=== PATIENT | male | born 1950 | race Caucasian/White ===

== ENCOUNTER 2017-08-29 17:05 | Inpatient (IN) | payer SELFPAY ==
[2017-08-29 17:57] LABS: #Eosinphils 0.2 thou/uL (0.0-0.7); #Lymphocytes 1.7 thou/uL (1.20-3.40); #Monocytes 0.6 thou/uL (0.11-0.59); #Neutrophils 7.8 thou/uL (1.40-6.50); %Basophils 0.3 % (0.0-1.0); %Eosinophils 1.8 % (0.0-10.0); %Lymphocytes 16.1 % (21.0-51.0); %Monocytes 5.6 % (0.0-10.0); %Neutrophils 76.2 % (42.0-75.0); Mean Corpuscular HGB CONC 31.3 g/dL (32.0-36.0); Mean Corpuscular Hemoglobin 28.7 pg (27.0-31.0); Mean Corpuscular Volume 91.8 fl (80.0-94.0); Mean Platelet Volume 7.7 fL (7.4-10.4); Platelet Count 426 thou/uL (130-400); RBC Distribution Width 19.3 % (11.5-14.5); Red Blood Cell (RBC) Count 3.83 mill/uL (4.70-6.10); White Blood Cell (WBC) Count 10.2 thou/uL (4.8-10.8)
[2017-08-29 18:27] LABS: ALT (SGPT) 17 U/L (8-55); AST (SGOT) 53 U/L (5-34); Albumin 3.3 g/dL (3.4-4.8); Alkaline Phosphatase 94 U/L (40-150); Anion Gap 18 mmol/L (10-20); BUN (Urea Nitrogen) 16 mg/dL (8.4-25.7); Bilirubin, Total 0.6 mg/dL (0.2-1.2); Calc. Creatinine Clearance 0 mL/min (70-130); Calcium 9.7 mg/dL (7.8-10.44); Carbon Dioxide 17 mmol/L (23-31); Chloride 101 mmol/L (98-107); Estimated GFR-MDRD 90; Globulin 4.8 g/dL (2.4-3.5); Glucose 89 mg/dL (80-115); Potassium 6.1 mmol/L (3.5-5.1); Protein, Total 8.1 g/dL (5.8-8.1); Sodium 130 mmol/L (136-145)
--- NOTE | 2017-08-29 18:50 | RAD ---
PORTABLE CHEST: HISTORY: Weakness. COMPARISON: 08/17/2017 FINDINGS: There is a patchy infiltrate in the right lower lung. Mild vascular congestion and interstitial prom inence could represent mild edema. POS: [facility]
[2017-08-29] MEDS ORDERED: Insulin Regular 300 UNITS/3 ML VIAL ONE (19:00)
[2017-08-29] MEDS ORDERED: Sodium Bicarb 50 MEQ/50 ML Abboject 8.4% SYRINGE ONE (19:00)
[2017-08-29] MEDS ORDERED: Dextrose 50% Abboject 50 ML SYRINGE ONE (19:00)
--- NOTE | 2017-08-29 20:56 | CT ---
CT HEAD WITHOUT CONTRAST: INDICATIONS: Weakness. Hypotension. TECHNIQUE: Multiple axial tomograms obtained through the head without IV enhancement. FINDINGS: Mild cortical volume loss. Ventricles have normal size and position. No intracranial mass or hemorr alexandra. No evidence of infarct. Sinuses and mastoids are well aerated. IMPRESSION: No acute intracranial abnormality. POS: [facility]
[2017-08-29] MEDS ORDERED: Ondansetron ODT 4 MG TAB SL PRN (22:16)
[2017-08-29] MEDS ORDERED: Acetaminophen 325 MG TAB PO PRN ×2 (22:16→23:37)
[2017-08-29] MEDS ORDERED: Ondansetron HCl/PF 4 MG/2 ML Vial IVP PRN (22:16)
[2017-08-29] MEDS ORDERED: HumaLOG 300 UNITS/3 ML VIAL SC PRN ×2 (23:37)
[2017-08-29] MEDS ORDERED: Dextrose 50% Abboject 50 ML SYRINGE SLOW IVP PRN (23:37)
[2017-08-29] MEDS ORDERED: Dextrose 5% in Water 1,000 ML IV PRN (23:37)
[2017-08-29] MEDS ORDERED: Guaifenesin DM 100-10/5 ML UDCUP PO PRN (23:37)
[2017-08-30 00:33] LABS: Potassium 3.6 mmol/L (3.5-5.1)
[2017-08-30 06:16] LABS: Anion Gap 16 mmol/L (10-20); BUN (Urea Nitrogen) 13 mg/dL (8.4-25.7); Calc. Creatinine Clearance 116 mL/min (70-130); Calcium 9.8 mg/dL (7.8-10.44); Carbon Dioxide 21 mmol/L (23-31); Chloride 105 mmol/L (98-107); Estimated GFR-MDRD Greater than 90; Potassium 3.7 mmol/L (3.5-5.1); Sodium 138 mmol/L (136-145)
[2017-08-30 06:22] LABS: Glucose 34 mg/dL (80-115)
--- NOTE | 2017-08-30 06:34 | HP ---
REASON FOR ADMISSION: Persistent hypotension, hyperkalemia. HISTORY OF PRESENTING ILLNESS: Patient had gone for a routine follow up to see Dr. Land at [facility] in [place]. His physical appearance was very pale and his vital signs showed low blood pressures of 83/62 and a point of care hemoglobin was 9.2 grams. The physician there did not feel comfortable and advised him to go to the emergency room. at bedside also mentions that he has had off and on confusion after he was discharged on the 4th of this month. He has held his torsemide this morning, as his blood pressures was low. The also mentions that he has not been ambulating for last 2 weeks. He has been sleeping in his recliner and is assisting with moving into his wheelchair. The patient has known history of CHF with likely prior EF of 15% per . They follow up with Dr. Mckenna who is a facilities operations technician in [place]. In fact, he has a followup appointment to see him today. He has no complaints of chest pain, palpitation, PND, or orthopnea. No complaints of urinary frequency or urgency. No cough or expectoration. He has had bowel movements regularly and has not had any black stools or murali bleeding. PAST MEDICAL AND SURGICAL HISTORY: History of CHF, diabetes mellitus type 2, coronary artery disease with prior stent placed in 2000, also had [place] in 09/[address] Tom for CABG evaluation, but he did not go through the procedure and was for medical management, dyslipidemia, COPD, history of prior peptic ulcer disease, recent GI bleed with gastric ulcers. CURRENT MEDICATIONS: Patient is on gabapentin 300 mg p.o. 3 times daily; topiramate 50 mg 3 times daily; glyburide 5 mg twice daily; Janumet mg twice daily; meclizine 25 mg twice daily; Plavix 75 mg daily; atorvastatin 40 mg daily; CoQ10 of 200 mg daily; aspirin 81 mg daily; potassium chloride 10 mEq p.o. daily; torsemide 10 mg on Tuesday, Tuesday, , Saturdays, and 20 mg on Tuesday, Tuesday, and Fridays; digoxin 0.125 mg p.o. on Tuesday, Wednesdays, and Fridays; allopurinol 100 mg daily; albuterol inhaler q.6 hourly p.r.n.; Protonix 40 mg twice daily. ALLERGIES: No known drug allergies. PERSONAL HISTORY: Quit smoking 1 year back, prior to which has smoked one pack a day for nearly 50 years, does not abuse alcohol or drugs. Lives with his . Prior to 2 weeks, patient was ambulating by himself and was doing all his activities of daily living. He was also making breakfast by himself. Now, he is essentially wheelchair bound. All this information is per . FAMILY HISTORY: Mother at the age of 52 years from breast cancer and its complications. Father lived up to 79 years. He has had history of CHF. REVIEW OF SYSTEMS: The following complete review of systems was negative, unless otherwise mentioned in the HPI or below: Constitutional: Weight loss or gain, ability to conduct usual activities. Skin: Rash, itching. Eyes: Double vision, pain. ENT/Mouth: Nose bleeding, neck stiffness, pain, tenderness. Cardiovascular: Palpitations, dyspnea on exertion, orthopnea. Respiratory: Shortness of breath, wheezing, cough, hemoptysis, fever, or night sweats. Gastrointestinal: Poor appetite, abdominal pain, heartburn, nausea, vomiting, constipation, or diarrhea. Genitourinary: Urgency, frequency, dysuria, nocturia. Musculoskeletal: Pain, swelling. Neurologic/Psychiatric: Anxiety, depression. Allergy/Immunologic: Skin rash, bleeding tendency. CODE STATUS: FULL. Power of employee benefits attorney is his . PHYSICAL EXAMINATION: GENERAL: Patient is a 66-year-old male who is currently not in any acute distress. VITAL SIGNS: Blood pressure 96/70, pulse 100 per minute, respiratory rate 18 per minute, temperature 98 degrees Fahrenheit, saturating 98% on room air. NECK: Supple, no elevated JVD. HEENT: Extraocular muscles intact. Pupils reacting to light. Oral cavity, mucous membranes are moist. No exudates or congestion. The patient has lost all his rugae on his tongue, which appears bald. CARDIOVASCULAR SYSTEM: S1, S2 heard. Regular rhythm. RESPIRATORY SYSTEM: Air entry 1+ bilaterally. No rales or rhonchi. ABDOMEN: Soft, bowel sounds heard. No tenderness, rigidity, or guarding. EXTREMITIES: Mild peripheral edema, no calf tenderness. VASCULAR SYSTEM: Peripheral pulses 1+ bilateral. No ischemic ulcerations, or gangrene. CENTRAL NERVOUS SYSTEM: No gross focal deficits seen. Patient is alert, awake , and oriented well. PSYCHIATRIC SYSTEM: Patient's mood is euthymic. No hallucinations or delusions. LABORATORY DATA AND X-RAY FINDINGS: White count of 10, H&H 11 and 35, platelet count 426 with 76% neutrophils, MCV is 91. Initial potassium was 6.1 repeat is 3.6, serum bicarbonate 17, BUN 16, creatinine 0.8, glucose 86. AST 53, ALT 17, alkaline phosphatase 94. Ammonia levels of 31. Albumin is 3.3. Stool occult blood x1 done in the ER is negative. Chest x-ray shows questionable patchy infiltrate in the right lower lung. CT brain without contrast done showed no acute intracranial abnormalities. CLINICAL IMPRESSION AND PLAN: Patient is being admitted to [facility] for hypotension and generalized physical decline from last two weeks. We will obtain echo with 2D Doppler for evaluation of his ejection fraction. He has known history of congestive heart failure and prior EF was 15% per . We will continue him on aspirin, Plavix, Lipitor, digoxin, topiramate, CoQ10, and Protonix as before. We will also continue his glyburide, hold his metformin for now. We will also empirically place him on Levaquin for right lung infiltrate, which appears more like mild congestion. We will obtain BNP levels as well. Patient has systolic blood pressures usually in the 90s-100s. It has dropped down to 80s at present. His H&H has not changed much from his recent discharge. PT, OT evaluations will be requested as well. Patient will likely need a skilled unit, but is uninsured. We will closely monitor him in [facility] for tonight, and patient can be transferred out to telemetry once his blood pressure come up to around 90s. Please note I have seen and examined patient on 08/29/2017. HAZEL
[2017-08-30 06:45] LABS: Eosinophils 2 % (0-10); Hemoglobin 10.6 g/dL (14.0-18.0); Lymphocytes 21 % (21-51); MDiff Complete? YES; Mean Corpuscular HGB CONC 32.8 g/dL (32.0-36.0); Mean Corpuscular Hemoglobin 29.5 pg (27.0-31.0); Mean Corpuscular Volume 89.8 fl (80.0-94.0); Monocytes 8 % (0-10); Neutrophil 69 % (42-75); PLT Morphology Comment Appears Increased; Platelet Count 424 thou/uL (130-400); Polychromasia SLIGHT = 2-3 cells (100X) (0-2/hpf); RBC Distribution Width 18.8 % (11.5-14.5); Red Blood Cell (RBC) Count 3.59 mill/uL (4.70-6.10)
[2017-08-30] MEDS ORDERED: glyBURIDE 5 MG TAB PO SCH (08:00)
[2017-08-30] MEDS ORDERED: Famotidine 20 MG TAB PO SCH (09:00)
[2017-08-30] MEDS: Allopurinol 100 MG TAB PO SCH (09:05)
[2017-08-30] MEDS: Clopidogrel Bisulfate 75 MG TAB PO SCH (09:06)
[2017-08-30] MEDS: Docusate 100 MG CAP PO SCH ×2 (09:06→20:46)
[2017-08-30] MEDS: Gabapentin 300 MG CAP PO SCH ×3 (09:06→20:46)
[2017-08-30] MEDS: Topiramate 25 MG TAB PO SCH ×3 (09:08→20:46)
[2017-08-30] MEDS: Enoxaparin Sodium 40 MG/0.4 ML SYRINGE SC SCH (09:08)
--- NOTE | 2017-08-30 16:19 | PDOC.PN ---
- Subjective Encounter Start Date: 08/30/17 Encounter Start Time: 16:00 Subjective: f/u for general weakness, physical decline and advanced CHF. Workup -: essentially negative and pt states he feels fine. Some SOB when lying -: flat. - Objective Resuscitation Status: Resuscitation Status FULL:Full Resuscitation MAR Reviewed: Yes Vital Signs & Weight: Vital Signs (12 hours) Temp Pulse Pulse Pulse Pulse Resp BP 08/30/17 15:42 96.8 F L 94 18 08/30/17 13:52 98 98 98 95/67 08/30/17 11:22 97.9 F 95 12 08/30/17 09:00 95 95 105 H 103/71 08/30/17 08:00 97.8 F 103 H 23 H 08/30/17 07:37 97.8 F 103 H 23 H BP BP BP Pulse Ox Pulse Ox Pulse Ox Pulse Ox 08/30/17 15:42 88/62 L 99 08/30/17 13:52 99/68 86/60 L 91 L 99 100 08/30/17 11:22 85/61 L 99 08/30/17 09:00 103/66 89/59 L 98 98 08/30/17 08:00 97 08/30/17 07:37 83/56 L 94 L Weight Admit Weight 181 lb 9.6 oz Weight 181 lb 9.6 oz I&O: 08/29/17 08/30/17 08/31/17 06:59 06:59 06:59 Intake Total 440 Balance 440 Result Diagrams: 08/30/17 04:33 08/30/17 04:33 Additional Labs: Accuchecks 08/30/17 08/30/17 08/30/17 10:31 07:12 06:15 POC Glucose 158 H 88 44 L* Radiology Reviewed by me: Yes (CT brain - negative) EKG Reviewed by me: Yes (Tele - SR in 90's) Phys Exam - Physical Examination awake, pale, responsive, ill-appearing HEENT: PERRLA, sclera anicteric, oral pharynx no lesions Neck: no nodes, no JVD, supple, full ROM bibasilar coarse sounds, occasional crackles Respiratory: no wheezing S1, S2 Cardiovascular: RRR, no significant murmur, no rub, gallop Gastrointestinal: soft, non-tender, no distention, positive bowel sounds Musculoskeletal: no edema, pulses present Neurological: non-focal, normal sensation, moves all 4 limbs Psychiatric: normal affect, A&O x 3 Skin: no rash, normal turgor, cap refill <2 seconds Dx/Plan (1) Hypotension Status: Chronic Comment: Suspected due to systolic CHF, 2D echo pending for EF confirmation, avoid anti-hypertensive medications (2) Physical deconditioning Code(s): R53.81 - OTHER MALAISE Status: Chronic Comment: PT evaluation for functional assessment, ? SNF vs Rehab (3) Systolic CHF, chronic Code(s): I50.22 - CHRONIC SYSTOLIC (CONGESTIVE) HEART FAILURE Status: Chronic Comment: 2D Echo pending for EF determination, appears compensated currently , ? end-stage progression (4) Hypoglycemia Code(s): E16.2 - HYPOGLYCEMIA, UNSPECIFIED Status: Acute Comment: Improved, likely iatrogenic, decrease Glyburide 5mg daily, hold Metformin (5) Hyponatremia Code(s): E87.1 - HYPO-OSMOLALITY AND HYPONATREMIA Status: Acute Comment: Resolved, likely due to poor po intake, continue to encourage Boost, dietary monitoring - Plan plan discussed w/ family, PT/OT, social worker assistant, out of bed/ambulate, DVT proph w/SCDs Stable overall -: Await 2D echo for EF determination -: PT for mobilization and functional assessment -: CM for SNF/Rehab options -: AM lab: CMP, CBC, Digoxin level, CK level * .
[2017-08-30] MEDS: PROVENTIL INHALER 6.7 G (200 INHALATIONS) INH SCH (19:15)
[2017-08-30] MEDS: Ubidecarenone 50 MG CAP PO SCH (20:46)
[2017-08-30] MEDS: Atorvastatin Calcium 40 MG TAB PO SCH (20:46)
--- NOTE | 2017-08-31 01:22 | CON ---
DATE OF CONSULTATION: 08/31/2017 This is Carmencita Soler NP. I am Dr. Casas' nurse practitioner, who is a superintendent circus. CARDIOLOGY CONSULT ROOM NUMBER: [id number]. PRIMARY CARE PHYSICIAN: Dr. Land at [facility] in [place]. PRIMARY BUTTON CUTTING MACHINE OPERATOR: Dr. Mckenna in [place], [place]. CARDIOLOGY: In [place] is going to be Dr. María Casas. REFERRING DOCTOR: Dr. Vickers. REASON FOR CARDIOLOGY CONSULTATION: Possible ischemic cardiomyopathy and hypotension. HISTORY OF PRESENT ILLNESS: Mr. Caldwell is a 66-year-old male with a significant history of coronary artery disease with stent placement x1 in [place] in 2000. Abnormal cardiac catheterization reports with medical management in 2017. Possible systolic congestive heart failure, diabetes type 2 , COPD, history of GI bleed from peptic and gastric ulcers with status post catheterization in 8. Patient in the [facility] for GI bleed and patient was discharged after on 08/22/2017, a fter status post gastric ulcer catheterization. According to the patient discharge summary on 2017 showed the patient's systolic blood pressure was 103, however, on since 08/23/2017, patient's bl ood pressure at home have been 80s to 90s/50s to 60s with a heart rate in 90s to 100. Patient's went to [facility] to see his primary care doctor for the followup appointment and found to hav e a blood pressure was 83/62 and hemoglobin level is 9.2. Patient was transferred to the emergency [facility] for further evaluation and treatment. Per patient's , patient has not walked since mid dle of the 07/2017 due to the weakness to generalized weakness and his leg was given out. The patien t denied any dizziness or lightheadedness. However, patient's noticed that patient is very forg etful lately and also some time patient shows flat expression in his face and come back within a few seconds, which was since middle of the 07/2017, but she did not notice any sign of the GI bleed such as hematuria or blood in stool on 08/22/2017. During the initial Cardiology consult assessment, radha ent denies any chest pain or discomfort in his chest, shortness of breath, or abdominal bloating, num bness to the left upper extremities, or nauseated or any other cardiac complaints; however, he compla ined of the soreness to the anterior part of his bilateral thighs when he started walking. He cannot tell this from the muscle or claudication. He denies any back pain at this time. He has a history of coronary artery disease with a stent placement x1 in [place] in 2000, since then he h as seen by superintendent circus in [place] in [place]. He is from [place] and he moved to [facility] around 2016. He underwent cardiac catheterization in 09/2016 at the [facility] and seen by Dr. Tom for CABG evaluation. However, after patient was told to be on medical sulaiman gement only due to the severe diffuse calcification to the entire coronary arteries. Since then he h as been on the Plavix and aspirin. According to the patient's , patient has echocardiogram done in 11/2016 by Cardiology in the [place], [place] and the patient was prescribed half-tablet Entresto 24/26 mg; however, patient had to stop taking the medicine within few days due to the hypotension. PAST MEDICAL HISTORY: 1. Coronary artery disease with stent placement in [place] in 2000. 2. Abnormal cardiac catheterization result in 09/2016 with medical management only. 3. Diabetes, type 2. 4. Hyperlipidemia. 5. Chronic obstructive pulmonary disease. 6. History of gastric ulcer with status post catheterization. 7. Carcinoma cancer removed from left nose to the cheek, which cause the left eye vision problem. 8. Migraine. He is on the Topamax. CURRENT MEDICATIONS: Gabapentin 300 mg 3 times a day; Topamax 50 mg 3 times a day; Anoro Ellipta 62. 5/25 mcg 1 puff daily; digoxin 125 mcg once a day; allopurinol 100 mg once a day; torsemide 20 mg on Tuesday, Tuesday, and Tuesday and 10 mg on Tuesday, Tuesday, , Tuesday; CoQ10 of 200 mg once a day; potassium 10 mEq once a day; aspirin 81 mg once a day; Lipitor 40 mg once a day; Janumet 50/10 00 mg 1 tablet twice a day; meclizine 25 mg twice a day for sinus; Plavix 75 mg once a day; glyburide 10 mg twice a day, albuterol 90 mcg inhaled 4 times a day, Protonix 40 mg twice a day. ALLERGIES: No known drug allergies. FAMILY HISTORY: Patient's paternal grandfather and mother has diseased due to heart problems. Zak hankins's father has a history of congestive heart failure, CABG x4 at age of 56, and mother myocardial in [facility] by [facility] at age of 66 and he due to complication of the cardiac related disease. Patient's mother due to the cancer. SOCIAL HISTORY: He is ex-smoker. He used to smoke one pack a day and quit in 09/2016. Patient nadine ed any alcohol or illicit drug abuse. He retired. He is living with his until middle of the . He was active, moaning yard and take care of yard and house, making breakfast himself, but ho wever, since mid 07/2017, he is wheelchair bound due to this weakness. REVIEW OF SYSTEMS: The following complete review of systems was negative, unless otherwise mentioned in the HPI or below. This is prior to July that reveal, Constitutional: Weight loss, skin rash, itc maryana, change in the hair growth or loss, nail change. Eyes: Double vision, tearing, blind spots, pa in. HEENT: Vertigo, lightheadedness, nasal bleeding, cold, obstruction, discharge, dental difficult y, gingival bleeding. Cardiovascular: Precordial pain, substernal distress, palpitation, syncope, d yspnea exertion, nocturnal dyspnea, varicosis, claudication. Respiratory: Shortness of breath, pain , wheezing, stridor, cough, hemoptysis. Gastrointestinal: Dysphagia, indigestion, abdominal pain, t enderness, constipation, or diarrhea. Genitourinary: Urinary urgency, frequency, dysuria, nocturia, hematuria, polyuria, oliguria, unusual color of urine. Musculoskeletal: Positive for weakness and given to the lower extremities, but negative for pain, swelling, redness or heat on the muscle or nico nt. Neurologic: Conversion paralysis, tremor, incoordination. Psychiatric: Emotional problem, anx iety, depression, previous psychiatric care, unusual perception, hallucination. PHYSICAL EXAMINATION: VITAL SIGNS: Blood pressure 88/62, temperature 96.8, pulse is 94 in sinus rhythm, respiratory rate i s 18, O2 sat 99% with room air. Orthostatic blood pressure being 86-99/60s with heart rate in 90s. GENERAL: Well-developed, well-nourished without any acute distress. HEAD: Normocephalic, atraumatic. EYES. Extraocular muscle movement intact. ENT: Oral and nasal mucosa are moist without lesions. NECK: No JVD. Neck was supple, normal range of motion. LUNGS: Clear to auscultation bilaterally. No wheezing, rales, or rhonchi noted. CARDIOVASCULAR: Regular rate and rhythm. There are normal S1, S2. There are no S3 or S4. No signi ficant murmur, hives, thrill noted. There are 2+ pulses in the dorsal pedis, posterior tibial, and b ilateral femoral pulse, arteries, but diminished pulses in the bilateral popliteal. Carotid pulses a re present without bruit or thrill. There are 1-2+ edema in the bilateral ankles. ABDOMEN: Soft and nontender or mass to palpate. Bowel sounds are present, but hypoactive. MUSCULOSKELETAL: The patient able to move all extremities. SKIN: Warm and dry. No skin rash, lesion, or bruise noted. NEUROLOGIC: Alert, oriented x4, awake, normal affect and nonfocal at this moment. Patient is easy t o forget. PSYCHIATRIC: Mood and affect are normal. EKG: A 12-lead EKG in the ER shows normal sinus rhythm with right bundle branch block with heart rat e to 98 and possible lateral infarct, but no change from 08/18/2017. LABORATORY DATA: Hemoglobin WBC 10.0, hemoglobin level 10.6, hematocrit 32.2, platelet 422. Sodium of 138, potassium of 3.7, BUN of 13, creatinine 0.75, glucose was 34 this morning and up to 158 aroun d 10:00. BNP is 797. AST 53, ALT 17. Brain CT shows no acute intracranial abnormality and chest x- ray shows patchy infiltrate in right lower lung and with possible mild pulmonary edema. Patient's ec hocardiogram was done and the result is pending at this moment. ASSESSMENT AND PLAN: 1. Hypotension. Patient's blood pressures have not been stable due to hypotensive; however, patient denies any dizziness or lightheadedness at this moment. We would like to hold any fluid bolus becau se possible very low ejection fraction. Patient's diuretic is on hold at this moment due to the hypo tension. We would like to continue to monitor the patient's blood pressure at this moment. 2. Possible chronic systolic congestive heart failure. At this moment, patient is not on MARIA ANTONIA or [facility]B for Entresto due to the hypotension since patient's creatinine level is stable. Once patient's bloo d pressure is stable, we would like to start any medication to improve the patient's ejection fractio n rate. 3. Coronary artery disease with history of stent placement in 2000 and abnormal cardiac catheterizat ion result in 09/2016. The patient is on the Plavix, aspirin, and Lovenox at this moment. We would like to continue to those medication, also patient has a history of GI bleeding due to the gastric ul cer. Because patient has a history of diffuse calcification in the coronary arteries. We like to ob tain patient's cath report from [facility] in [place]. 4. Diabetes, type 2. Patient is on a.c. and at bedtime blood glucose check with glucose management, which is managed by primary care doctor. 5. Hyperlipidemia. Patient is on atorvastatin 40 mg once a day. 6. Chronic obstructive pulmonary disease. Patient is stable. Respiratory status is stable with paul m air at this moment and the patient has several breathing treatment orders. 7. Physical deconditioning. Patient has a PT and OT ordered for evaluation for the functional asses sment. Thank you very much for allowing the Cardiology service to participate in the care of this patient. We will follow along with the patient's care team and make further recommendation as appropriate.
--- NOTE | 2017-08-31 02:05 | CON ---
DATE OF CONSULTATION: 08/30/2017 DATE OF ADMISSION: 08/29/2017 INDICATION FOR CONSULTATION: A 66-year-old patient with a history of cardiomyopathy, coronary artery disease, and hypotension who was admitted with anemia and hypotension. HISTORY OF PRESENT ILLNESS: This very unfortunate 66-year-old gentleman who has been seen by [facility]. He has suffered a myocardial infarction, I believe in 2016. He had previous on e in 2000. He has undergone angioplasty and stent placement. He was considered for bypass surgery, but was then turned down due to calcifications and most likely small vessels. He then sought a repea t consultation and has been followed, I believe in by different technology teacher in [place], [place] and has b usman treated medically for his coronary artery disease. He has developed hypotension in the last yessenia ral weeks, has been very lethargic and not wanting to do very much, has been fatigued. He was seen b vanessa the primary care physician and was sent to the emergency room. He was found to have anemia as well as hypotension. Blood pressures remained low as 86/50 and I have seen the patient at this time. He did have the repeat echocardiogram today, which shows ejection fraction of 15%-20% with all 4-chambe r dilatation. He also has diastolic dysfunction with restrictive type pattern as well as mild-to-mod erate tricuspid valve regurgitation, mild mitral valve regurgitation. It appears that he has severe cardiomyopathy and associated congestive heart failure and hypotension. At this time, he denies any chest pain or significant shortness of breath. PAST MEDICAL HISTORY: Significant for the coronary artery disease, congestive heart failure, cardiom yopathy, myocardial infarctions x2 with stent placements in 2000 and 2016. He has history of diabete s. He has history of COPD. He also has history of peptic ulcer disease, [facility] For his other review of systems, list of medications, and allergies, please refer to notes dictated b vanessa my nurse practitioner, Carmencita. PHYSICAL EXAMINATION: GENERAL: Reveals a very ill-appearing, pale gentleman. VITAL SIGNS: Blood pressure 86/50, heart rate is in the 98 range. He remains in sinus rhythm. He d oes have an interventricular conduction abnormality. He is afebrile, respiratory rate is 12. HEENT: Shows head to be normocephalic, atraumatic. Carotid pulses are present. I did not hear any significant bruits. There is no JVD. CHEST: Clear to auscultation. I did not hear any rales, rhonchi, or wheezing. CARDIOVASCULAR: Exam reveals a regular rhythm at this time. He has S1, S2 sometimes it appears that he does also have an S3. There were no gross murmurs. ABDOMEN: Soft and nontender. He has obesity, positive bowel sounds are present. EXTREMITIES: Showed no clubbing or cyanosis at this time. Pedal pulses were decreased. NEUROLOGIC: The patient is alert. He is oriented. He appears to be fatigued. IMAGING: EKG shows a normal sinus rhythm, interventricular conduction abnormality, question of possi ble old lateral myocardial infarction. Echocardiogram as noted above. His chest x-ray showed eviden ce I believe of possible early or mild pulmonary edema. He also has a patchy infiltrate in the right lower lung. I did not appreciate this on examination. He had a CT scan performed of the brain, whi ch did not show any acute changes. IMPRESSION: 1. Severe cardiomyopathy with ejection fraction of 15%-20% with 4 chamber dilatation with hypotensio n associated with systolic heart failure. He also has diastolic dysfunction. We will continue to tr eat him medically as much as possible. It appears that patient may be approaching end-stage disease if we are unable to maintain his blood pressure. He is not on medications that would lower the blood pressure at this time. 2. History of chronic obstructive pulmonary disease. He has been feeling in the past and no longer smokes. 3. Diabetes. When earlier, he was very hypoglycemic this increased and after treatment is up to 158 . 4. History of anemia. If he undergoes blood transfusions, he will likely need to have IV Lasix. At this time, there is no indication to transfuse the patient. 5. Elevated BNP compatible with his congestive heart failure. We will be happy to continue to follow the patient with you. Overall, prognosis obviously is not danyelle y good. I would continue him on the aspirin as well as the atorvastatin and Plavix as well as his th erapeutic Lovenox for deep vein thrombosis prophylaxis.
[2017-08-31 04:11] LABS: ALT (SGPT) 10 U/L (8-55); AST (SGOT) 12 U/L (5-34); Albumin 3.3 g/dL (3.4-4.8); Alkaline Phosphatase 84 U/L (40-150); Anion Gap 13 mmol/L (10-20); BUN (Urea Nitrogen) 13 mg/dL (8.4-25.7); Bilirubin, Total 0.7 mg/dL (0.2-1.2); CK (CPK) 20 U/L (30-200); Calc. Creatinine Clearance 104 mL/min (70-130); Calcium 9.5 mg/dL (7.8-10.44); Carbon Dioxide 23 mmol/L (23-31); Chloride 103 mmol/L (98-107); Estimated GFR-MDRD Greater than 90; Globulin 3.8 g/dL (2.4-3.5); Glucose 135 mg/dL (80-115); Potassium 3.6 mmol/L (3.5-5.1); Protein, Total 7.1 g/dL (5.8-8.1); Sodium 135 mmol/L (136-145)
[2017-08-31 04:12] LABS: Band 12 % (5-11); Hemoglobin 10.5 g/dL (14.0-18.0); Lymphocytes 17 % (21-51); MDiff Complete? YES; Mean Corpuscular Hemoglobin 28.7 pg (27.0-31.0); Mean Corpuscular Volume 89.7 fl (80.0-94.0); Mean Platelet Volume 6.9 fL (7.4-10.4); Monocytes 5 % (0-10); Neutrophil 66 % (42-75); Platelet Count 441 thou/uL (130-400); RBC Distribution Width 19.1 % (11.5-14.5); Red Blood Cell (RBC) Count 3.64 mill/uL (4.70-6.10); White Blood Cell (WBC) Count 10.6 thou/uL (4.8-10.8)
[2017-08-31 05:01] LABS: Digoxin 0.16 ng/mL (0.8-2.0)
[2017-08-31] MEDS: PROVENTIL INHALER 6.7 G (200 INHALATIONS) INH SCH ×4 (08:13→18:53)
[2017-08-31] MEDS: glyBURIDE 5 MG TAB PO SCH (08:49)
[2017-08-31] MEDS: Topiramate 25 MG TAB PO SCH ×3 (08:49→21:37)
[2017-08-31] MEDS: Docusate 100 MG CAP PO SCH ×2 (08:49→21:36)
[2017-08-31] MEDS: Clopidogrel Bisulfate 75 MG TAB PO SCH (08:49)
[2017-08-31] MEDS: Potassium Chloride 10 MEQ TAB PO SCH (08:49)
[2017-08-31] MEDS: Allopurinol 100 MG TAB PO SCH (08:49)
[2017-08-31] MEDS: Gabapentin 300 MG CAP PO SCH ×3 (08:49→21:36)
[2017-08-31] MEDS: Enoxaparin Sodium 40 MG/0.4 ML SYRINGE SC SCH (08:50)
[2017-08-31] MEDS: Digoxin 0.125 MG TAB PO SCH (08:50)
[2017-08-31] MEDS ORDERED: NPH, Human Insulin Isophane 300 UNIT/3 ML VIAL SC SCH ×2 (09:15→21:00)
--- NOTE | 2017-08-31 12:02 | PDOC.CTH ---
<Carmencita Soler - Last Filed: 08/31/17 11:58> Cardiology Progress Note - Subjective The pt seen and examined. No overnight events. No cardiac complaints. However , he stated he has not voided since this AM. - Objective Vital Signs Temp Pulse Resp BP BP Pulse Ox 08/31/17 10:59 97.8 F 95 18 101/75 95 08/31/17 08:50 94 08/31/17 08:00 97.8 F 94 18 08/31/17 07:21 97.8 F 94 17 99/69 90 L 08/31/17 04:00 97.2 F L 92 20 88/63 L 95 08/31/17 00:00 97.5 F L 90 22 H 95/72 95 Admit Weight 181 lb 9.6 oz Weight 180 lb 08/30/17 08/31/17 09/01/17 06:59 06:59 06:59 Intake Total 440 1055 Balance 440 1055 - Physical Examination General/Neuro: alert & oriented x3 Neck: no JVD present Lungs: other: (diminished at bases) Heart: RRR Abdomen: soft Extremities: other: (No edema) - Telemetry Telemetry Rhythm: SR - Labs Result Diagrams: 08/31/17 03:23 08/31/17 03:23 - Assessment/Plan 1. Severe ischemic CMY - Echo on 08/30/17 showed EF 15-20% with grade I diastolic dysfunction; will start MARIA ANTONIA when his VS is stable 2. Acute on Chronic combined HF - stable 3. Hypotension - Off any BP med at this moment; cont. to monitor 4. CAD with hx of stent x2 in LAD in 2000 and abnormal cath result in 2017 with medical tx only - stable; cont. to monitor on tele 5. Hyperlipidemia - on Statin 6. DM type 2 - stable; managed by PCP 7. COPD - stable 8. Hx of GI bleed 2ndary to peptic ulcer - stable; on Protonix 40mg BID; 9. dysuria - order PSA in tomorrow AM MAR reviewed * Echo on 08/30/17 showed EF 15-20%, mod LVH, grade I distolic dysfunction, mod RVE, mod biatrium dilated, mild MR, mild-mod TR, and mild VA. Review of Systems - Review of Systems Constitutional: reports: no symptoms reported EENTM: reports: no symptoms reported Respiratory: reports: no symptoms reported Cardiac (ROS): reports: no symptoms reported ABD/GI: reports: no symptoms reported : reports: no symptoms reported <Molly Casas - Last Filed: 08/31/17 19:37> Cardiology Progress Note - Objective Vital Signs Temp Pulse Resp BP Pulse Ox 08/31/17 19:21 98.4 F 99 17 94/59 L 98 08/31/17 15:22 97.5 F L 90 16 103/73 90 L 08/31/17 10:59 97.8 F 95 18 101/75 95 08/31/17 08:50 94 08/31/17 08:00 97.8 F 94 18 Admit Weight 181 lb 9.6 oz Weight 180 lb 08/30/17 08/31/17 09/01/17 06:59 06:59 06:59 Intake Total 440 1055 680 Balance 440 1055 680 - Labs Result Diagrams: 08/31/17 03:23 08/31/17 03:23 - Assessment/Plan Pt. seen and eval. by me. I had a long discussion with the family about his poor prognosis. The decrease EF and the hypotension limits medical management. He is not a candidate for coronary intervention or surgery. He probably will need hospice care. I have little else to offer from a cardiac standpoint. It is unlikely that even a bi-V AICD would help at this point. His HR is too fast to pace and the BP likely will not tolerate betablocker therapy. I agree with the above assessment by the CLINICAL ABSTRACTOR.
--- NOTE | 2017-08-31 16:36 | PDOC.PN ---
- Subjective Encounter Start Date: 08/31/17 Encounter Start Time: 15:10 Subjective: f/u for end-stage CHF with EF 15-20%. Remains weak and fatigued. -: Appetite ok. Voiding small amount of urine. No CP but still with SOB -: especially lying flat. - Objective Resuscitation Status: Resuscitation Status FULL:Full Resuscitation MAR Reviewed: Yes Vital Signs & Weight: Vital Signs (12 hours) Temp Pulse Resp BP Pulse Ox 08/31/17 15:22 97.5 F L 90 16 103/73 90 L 08/31/17 10:59 97.8 F 95 18 101/75 95 08/31/17 08:50 94 08/31/17 08:00 97.8 F 94 18 08/31/17 07:21 97.8 F 94 17 99/69 90 L Weight Admit Weight 181 lb 9.6 oz Weight 180 lb I&O: 08/30/17 08/31/17 09/01/17 06:59 06:59 06:59 Intake Total 440 1055 Balance 440 1055 Result Diagrams: 08/31/17 03:23 08/31/17 03:23 Additional Labs: Accuchecks 08/31/17 08/31/17 08/30/17 10:27 05:37 20:47 POC Glucose 192 H 142 H 224 H 08/30/17 17:51 POC Glucose 213 H Radiology Reviewed by me: Yes (2D Echo - EF 15-20%, restrictive filling, ROXANNA, RVH) EKG Reviewed by me: Yes (Tele - SR) Phys Exam - Physical Examination pale, tired appearing HEENT: PERRLA, sclera anicteric, oral pharynx no lesions Neck: no nodes, no JVD, supple, full ROM diminished in bases, bibasilar crackles Cardiovascular: RRR, no significant murmur, no rub, gallop Gastrointestinal: soft, non-tender, no distention, positive bowel sounds Musculoskeletal: no edema, pulses present Neurological: normal sensation, moves all 4 limbs Psychiatric: normal affect, A&O x 3 Skin: no rash, normal turgor, cap refill <2 seconds Dx/Plan (1) Ischemic cardiomyopathy Code(s): I25.5 - ISCHEMIC CARDIOMYOPATHY Status: Chronic Comment: EF 15-20% , appears to be end-stage process with progressive functional decline, consider Hospice evaluation given current condition and poor prognosis (2) Systolic CHF, chronic Code(s): I50.22 - CHRONIC SYSTOLIC (CONGESTIVE) HEART FAILURE Status: Chronic Comment: 2D Echo with EF 15%, see above, diuretic therapy precluded due to persistent hypotension mediated from depressed EF, will discuss potential AICD vs Palliative measures (3) Hypotension Status: Chronic Comment: Suspected due to systolic CHF, avoid anti- hypertensive medications, continue Digoxin, other inotropic agents involve IV forms and not likely to provide significant improvement in overall outcome (4) Physical deconditioning Code(s): R53.81 - OTHER MALAISE Status: Chronic Comment: PT evaluation for functional assessment, ? SNF vs Rehab (5) Hypoglycemia Code(s): E16.2 - HYPOGLYCEMIA, UNSPECIFIED Status: Acute Comment: Improved, likely iatrogenic, decrease Glyburide 5mg daily, hold Metformin (6) Hyponatremia Code(s): E87.1 - HYPO-OSMOLALITY AND HYPONATREMIA Status: Acute Comment: Resolved, likely due to poor po intake, continue to encourage Boost, dietary monitoring - Plan plan discussed w/ family, PT/OT, social sciences lecturer, DVT proph w/SCDs Continue supportive mgmt -: Palliative care consult appreciated -: Check bladder scan, may need in/out catheterization -: Not candidate for Entresto due to persistent hypotension -: ? AICD vs Palliative/hospice * Updated family of current situation and concern for poor prognosis
--- NOTE | 2017-08-31 16:56 | PDOC.EVN ---
Event Note - Event Note Event Note: ACP Note: Discussed at length the current clinical situation regarding end-stage ischemic cardiomyopathy and depressed EF 15%. Discussed poor prognosis with patient and spouse and daughter today and the likelihood of continued decline. Discussed goals of care and code status and pt reluctant to make a final determination of which direction to pursue but family leaning toward less aggressive measures given the end-stage CHF. Discussed limited therapeutic options given the persistent hypotension. Family willing to discuss palliative options but unsure of hospice options. Currently pt wants to remain full code but considering less aggressive interventions. Family to continue discussing plan of care and goals and potential return to home with palliative/hospice care. Will follow up with pt and family as discussions continue and options are considered. Total time 22min
[2017-08-31] MEDS: Atorvastatin Calcium 40 MG TAB PO SCH (21:35)
[2017-08-31] MEDS: Ubidecarenone 50 MG CAP PO SCH (21:35)
[2017-09-01] MEDS: Enoxaparin Sodium 40 MG/0.4 ML SYRINGE SC SCH (08:12)
[2017-09-01] MEDS: Gabapentin 300 MG CAP PO SCH ×3 (08:13→21:00)
[2017-09-01] MEDS: Allopurinol 100 MG TAB PO SCH (08:13)
[2017-09-01] MEDS: Clopidogrel Bisulfate 75 MG TAB PO SCH (08:14)
[2017-09-01] MEDS: Docusate 100 MG CAP PO SCH ×2 (08:14→20:59)
[2017-09-01] MEDS: Potassium Chloride 10 MEQ TAB PO SCH (08:14)
[2017-09-01] MEDS: Topiramate 25 MG TAB PO SCH ×3 (08:14→21:00)
[2017-09-01] MEDS: glyBURIDE 5 MG TAB PO SCH (08:14)
[2017-09-01] MEDS: PROVENTIL INHALER 6.7 G (200 INHALATIONS) INH SCH ×4 (08:26→18:47)
--- NOTE | 2017-09-01 08:45 | PDOC.CTH ---
Cardiology Progress Note - Subjective The pt seen and examined. No overnight events. No cardiac complaints. He is up to chair with minimal assist. Denied dizziness or lightheadedness. - Objective Vital Signs Temp Pulse Resp BP BP Pulse Ox 09/01/17 08:26 98 16 95 09/01/17 07:18 97.3 F L 91 18 88/60 L 97 09/01/17 04:01 98.1 F 87 23 H 92/59 L 95 08/31/17 23:51 97.8 F 93 18 102/71 98 Admit Weight 181 lb 9.6 oz Weight 183 lb 08/31/17 09/01/17 09/02/17 06:59 06:59 06:59 Intake Total 1055 1280 Balance 1055 1280 - Physical Examination General/Neuro: alert & oriented x3 Neck: no JVD present Lungs: CTA (diminished at bases) Heart: RRR Abdomen: soft Extremities: other: (1+ edema to bilat ankles) - Telemetry Telemetry Rhythm: SR - Labs Result Diagrams: 08/31/17 03:23 08/31/17 03:23 - Assessment/Plan 1. Severe ischemic CMY - Echo on 08/30/17 showed EF 15-20% with grade I diastolic dysfunction; No a good candidate for further cardiac intervention. 2. Acute on Chronic combined HF - stable 3. Hypotension - Off any BP med at this moment; cont. to monitor 4. CAD with hx of stent x2 in LAD in 2000 and abnormal cath result in 2017 with medical tx only - stable; waiting for cath and echo result from [facility]; cont. to monitor on tele 5. Hyperlipidemia - on Statin 6. DM type 2 - stable; managed by PCP 7. COPD - stable 8. Hx of GI bleed 2ndary to peptic ulcer - stable; on Protonix 40mg BID; MAR reviewed * Echo on 08/30/17 showed EF 15-20%, mod LVH, grade I distolic dysfunction, mod RVE, mod biatrium dilated, mild MR, mild-mod TR, and mild MA. * The pt and stated the pt does not want AICD placement. They stated they understood that decreased EF and the hypotension limit medical management and he is not a good candidate for coronary intervention or surgery. Review of Systems - Review of Systems Constitutional: reports: weakness EENTM: reports: no symptoms reported Respiratory: reports: no symptoms reported Cardiac (ROS): reports: no symptoms reported ABD/GI: reports: no symptoms reported : reports: no symptoms reported Musculoskeletal: reports: no symptoms reported
[2017-09-01 09:28] VITALS: BMI 30.4
--- NOTE | 2017-09-01 16:25 | PDOC.PN ---
- Subjective Encounter Start Date: 09/01/17 Encounter Start Time: 16:15 Subjective: f/u for ischemic CM, chronic syst CHF and end-stage process. States -: ambulated with PT with worsening hypotension after returning to room. -: Some SOB. Appetite better today. - Objective Resuscitation Status: Resuscitation Status FULL:Full Resuscitation MAR Reviewed: Yes Vital Signs & Weight: Vital Signs (12 hours) Temp Pulse Pulse Pulse Resp BP BP 09/01/17 15:21 96.7 F L 92 15 09/01/17 13:05 96 96 80/59 L 101/69 09/01/17 12:04 98 F 93 17 09/01/17 11:32 101 H 16 09/01/17 08:26 98 16 09/01/17 08:00 97.3 F L 101 H 16 09/01/17 07:18 97.3 F L 91 18 BP Pulse Ox Pulse Ox Pulse Ox 09/01/17 15:21 79/54 L 98 09/01/17 13:05 98 98 09/01/17 12:04 85/64 L 91 L 09/01/17 11:32 96 09/01/17 08:26 95 09/01/17 08:00 96 09/01/17 07:18 88/60 L 97 Weight Admit Weight 181 lb 9.6 oz Weight 183 lb I&O: 08/31/17 09/01/17 09/02/17 06:59 06:59 06:59 Intake Total 1055 1280 Balance 1055 1280 Result Diagrams: 08/31/17 03:23 08/31/17 03:23 Additional Labs: Accuchecks 09/01/17 09/01/17 08/31/17 10:41 05:48 19:55 POC Glucose 184 H 121 H 202 H 08/31/17 16:32 POC Glucose 184 H EKG Reviewed by me: Yes (Tele - SR in 90's) Phys Exam - Physical Examination alert, responsive HEENT: PERRLA, sclera anicteric, oral pharynx no lesions Neck: no nodes, no JVD, supple, full ROM Respiratory: no wheezing, no rales, no rhonchi, clear to auscultation bilateral S1, S2 Cardiovascular: RRR, no significant murmur, no rub, gallop Gastrointestinal: soft, non-tender, no distention, positive bowel sounds Musculoskeletal: no edema, pulses present Neurological: non-focal, normal sensation, moves all 4 limbs Psychiatric: normal affect, A&O x 3 Skin: no rash, normal turgor, cap refill <2 seconds Dx/Plan (1) Ischemic cardiomyopathy Code(s): I25.5 - ISCHEMIC CARDIOMYOPATHY Status: Chronic Comment: EF 15-20% , appears to be end-stage process with progressive functional decline, Hospice evaluation given current condition and poor prognosis, pt and family wishing to pursue Hospice option (2) Systolic CHF, chronic Code(s): I50.22 - CHRONIC SYSTOLIC (CONGESTIVE) HEART FAILURE Status: Chronic Comment: 2D Echo with EF 15%, see above, diuretic therapy precluded due to persistent hypotension mediated from depressed EF, will discuss potential AICD vs Palliative measures (3) Hypotension Status: Chronic Comment: Suspected due to systolic CHF, avoid anti- hypertensive medications, continue Digoxin, other inotropic agents involve IV forms and not likely to provide significant improvement in overall outcome (4) Physical deconditioning Code(s): R53.81 - OTHER MALAISE Status: Chronic Comment: PT evaluation for functional assessment, ? SNF vs Rehab (5) Hypoglycemia Code(s): E16.2 - HYPOGLYCEMIA, UNSPECIFIED Status: Acute Comment: Improved, likely iatrogenic, decrease Glyburide 5mg daily, hold Metformin (6) Hyponatremia Code(s): E87.1 - HYPO-OSMOLALITY AND HYPONATREMIA Status: Acute Comment: Resolved, likely due to poor po intake, continue to encourage Boost, dietary monitoring - Plan plan discussed w/ family, PT/OT, executive secretary social welfare, out of bed/ambulate, DVT proph w/SCDs Continue supportive mgmt -: Convert to DNR status -: Continue ASA and Plavix -: Unable to add diuretics due to persistent hypotension -: Likely home with Hospice in 24h * .
--- NOTE | 2017-09-01 18:40 | CON ---
DATE OF CONSULTATION: 09/01/2017 HISTORY OF PRESENT ILLNESS: Mr. Caldwell is a very pleasant gentleman who is followed by Dr. Casas. Actually, he had a hospital followup with his primary care doctor who referred him to the emergency r oom for relative hypotension. He has a history of cardiomyopathy and inoperable coronary disease in the past. He says he feels fine now. A quick check of his hemoglobin in his primary care doctor suggested his hemoglobin was 9, but apparently it was 11 here. PAST MEDICAL HISTORY: Remarkable for, 1. Cardiomyopathy and EF of 15-20. 2. History of inoperable calcific coronary disease. 3. History of myocardial infarctions with 2 stents in the past. 4. History of diabetes. 5. History of COPD. 6. History of ulcers. 7. History of GI bleeding recently. He actually underwent endoscopy on 08/18/2017 with 4 ulcers hunter ng identified at the junction of the gastric body and the antrum, one of which was 10 mm with adheren t clot. SOCIAL HISTORY: He has showed no signs of bleeding on this admission. FAMILY HISTORY: Negative for lung disease in early age. REVIEW OF SYSTEMS: Ten points are otherwise negative. PHYSICAL EXAMINATION: VITAL SIGNS: He is afebrile, heart rate is 92, respiratory rate 17, oximetry is 91 on room air, bloo d pressure is 80/59 and 85/64 earlier. HEENT: Pupils are equal. Sclerae are anicteric. NECK: Supple. No lymphadenopathy. LUNGS: Clear. HEART: Regular rhythm. No S3, no murmur. ABDOMEN: Soft and nontender. EXTREMITIES: Without clubbing, cyanosis, or edema. NEUROLOGIC: Nonfocal. LABORATORY DATA: White count 10.6, hemoglobin 10.5, platelets 441,000. Sodium 135, potassium 3.6, chloride 103, bicarb 23, BUN 13, creatinine 0.84. IMPRESSION: Relative hypotension, most likely associated with his cardiomyopathy. I did order a cor tisol level and his level is 11, which probably is an appropriate level considering he is under no re al acute illness or stressors right now. I will be happy to follow with the other physicians caring for him. Dr. Casas is following him. Echocardiogram this admission done on the shows an ejectio n fraction of 15-20, but no significant valvular heart disease. He appears to be medically stable at this point. He does not appear to be bleeding.
[2017-09-01] MEDS: Ubidecarenone 50 MG CAP PO SCH (20:59)
[2017-09-01] MEDS: Atorvastatin Calcium 40 MG TAB PO SCH (21:00)
[2017-09-02] MEDS: PROVENTIL INHALER 6.7 G (200 INHALATIONS) INH SCH ×2 (07:11→10:36)
[2017-09-02] MEDS: glyBURIDE 5 MG TAB PO SCH (09:15)
[2017-09-02] MEDS: Docusate 100 MG CAP PO SCH (09:16)
[2017-09-02] MEDS: Clopidogrel Bisulfate 75 MG TAB PO SCH (09:16)
[2017-09-02] MEDS: Allopurinol 100 MG TAB PO SCH (09:16)
[2017-09-02] MEDS: Gabapentin 300 MG CAP PO SCH (09:17)
[2017-09-02] MEDS: Potassium Chloride 10 MEQ TAB PO SCH (09:17)
[2017-09-02] MEDS: Topiramate 25 MG TAB PO SCH (09:17)
[2017-09-02] MEDS: Enoxaparin Sodium 40 MG/0.4 ML SYRINGE SC SCH (09:17)
[2017-09-02] MEDS: Digoxin 0.125 MG TAB PO SCH (09:26)
[2017-09-02 11:09] VITALS: BP 90/66; TEMP 97.6
--- NOTE | 2017-09-02 11:10 | PDOC.CTH ---
Cardiology Progress Note - Subjective The pt seen and examined. No overnight events. No cardiac complaints. He is up to chair with minimal assist. Denied dizziness or lightheadedness. - Objective Vital Signs Temp Pulse Resp BP BP Pulse Ox 09/02/17 11:08 97.6 F 98 16 90/66 95 09/02/17 09:26 93 09/02/17 07:34 97.8 F 93 18 94 L 09/02/17 07:31 97.8 F 93 18 95/64 95 09/02/17 04:31 98.2 F 92 20 84/58 L 92 L 09/01/17 23:37 98.7 F 98 20 83/64 L 94 L Admit Weight 181 lb 9.6 oz Weight 184 lb 09/01/17 09/02/17 09/03/17 06:59 06:59 06:59 Intake Total 1280 300 Output Total 825 Balance 1280 -525 - Physical Examination General/Neuro: alert & oriented x3 Neck: no JVD present Lungs: CTA Heart: RRR Abdomen: soft Extremities: other: (1+ pitting edema) - Telemetry Telemetry Rhythm: SR 90-100s - Labs Result Diagrams: 08/31/17 03:23 08/31/17 03:23 - Assessment/Plan 1. Severe ischemic CMY - Echo on 08/30/17 showed EF 15-20% with grade I diastolic dysfunction; No a good candidate for further cardiac intervention. 2. Acute on Chronic combined HF - stable; Not on BBlocker, MARIA ANTONIA, or Diuretic meds due to hypotension. 3. Hypotension - Off any BP med at this moment; cont. to monitor 4. CAD with hx of stent x2 in LAD in 2000 and abnormal cath result in 2017 with medical tx only - stable; waiting for cath and echo result from [facility]; cont. to monitor on tele 5. Hyperlipidemia - on Statin 6. DM type 2 - stable; managed by PCP 7. COPD - stable 8. Hx of GI bleed 2ndary to peptic ulcer - stable; on Protonix 40mg BID; MAR reviewed * Echo on 08/30/17 showed EF 15-20%, mod LVH, grade I distolic dysfunction, mod RVE, mod biatrium dilated, mild MR, mild-mod TR, and mild SC. * The pt and stated the pt does not want AICD placement. They stated they understood that decreased EF and the hypotension limit medical management and he is not a good candidate for coronary intervention or surgery. * From Cardiac standpoint, the pt is stable to d/c home with Hospice. The pt will f/u with Dr Casas' office within 2-4 wks. Review of Systems - Review of Systems Constitutional: reports: weakness EENTM: reports: no symptoms reported Respiratory: reports: no symptoms reported Cardiac (ROS): reports: no symptoms reported ABD/GI: reports: no symptoms reported : reports: no symptoms reported Musculoskeletal: reports: no symptoms reported Skin: reports: no symptoms reported
--- NOTE | 2017-09-02 11:33 | DIS ---
DATE OF ADMISSION: 08/29/2017 DATE OF DISCHARGE: 09/02/2017 DISCHARGE DIAGNOSES: 1. 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 2. Ischemic cardiomyopathy with ejection fraction 15-20%. 3. Hypotension secondarily to #1, persistent. 4. Severe physical deconditioning. 5. Hypoglycemia secondary to oral hypoglycemics. 6. Hyponatremia secondary to #1. CONSULTATIONS: 1. Dr. Martinez with Pulmonology Service. 2. Dr. Casas with Cardiology Service. PERTINENT LABORATORY AND X-RAY FINDINGS: Sodium ranged between 130-138, potassium ranged between 3.6 -6.1. Glucose ranged between 34-135. BNP 797. CBC showed hemoglobin ranged between 10.5-11.0, digo gerald level 0.16. Blood cultures x2 from 08/29/2017 showed no growth at 48 hours. Stool Hemoccult hank ed 08/29/[address] of the brain without contrast dated 08/29/2017 showed no acute intracranial process. Portable leona st x-ray dated 08/29/2017 showed patchy infiltrate in the right lower lung with mild vascular congest ion. A 2D transthoracic echocardiogram dated 08/30/2017 showed ejection fraction of 15-20%. Left at rial enlargement. Mild to moderate tricuspid regurgitation. HOSPITAL COURSE: The patient was initially admitted to the [facility] who initially presented with persistent hypotension and hyperkalemia. The patient with a longstanding history of chronic sy stolic congestive heart failure and ischemic cardiomyopathy with inoperable coronary artery disease. The patient underwent extensive evaluation and comprehensive studies ruling out a central process or neurologic component. The patient underwent evaluation by the Cardiology Service undergoing 2D kowalski sthoracic echocardiogram confirming advanced heart failure with ejection fraction of approximately 15 %. The patient was noted with persistent hypotension throughout the hospital course deemed secondari ly to low ejection fraction and end-stage cardiomyopathy. The patient was continued on his chronic r egimen to include aspirin, Plavix, Lipitor and digoxin. The patient was unable to tolerate any beta shannon therapy or MARIA ANTONIA inhibitors due to severe hypotension. The patient was also unable to tolerate any diuretic therapy due to the same process. The patient was noted with deconditioning and dyspnea with minimal exertion. Due to patient's overall comorbid status and end-stage cardiomyopathy the pa baron was not deemed an appropriate candidate for AICD placement or pacing due to a relative tachycar annie. The family and the patient decided to pursue palliative measures and comfort care and decided t o pursue hospice after discharge at home. I have examined the patient at the time of discharge and discussed pertinent studies as well as sterling w up instructions and plan for discharge. The patient verbalizes understanding and agreement and ray l discharge home with [facility] on 09/02/2017. DISCHARGE MEDICATIONS: 1. Albuterol sulfate 90 mcg inhaled q.i.d. 2. Allopurinol 100 mg p.o. daily. 3. Aspirin 81 mg 1 tab p.o. daily. 4. Lipitor 40 mg p.o. at bedtime. 5. Plavix 75 mg p.o. daily. 6. Digoxin 125 mcg p.o. Tuesday, Tuesday, and Tuesday. 7. Gabapentin 300 mg p.o. t.i.d. 8. Glyburide 5 mg p.o. q.a.m. 9. Meclizine 25 mg p.o. b.i.d. p.r.n. 10. Protonix 40 mg p.o. b.i.d. 11. Potassium chloride 10 mEq p.o. daily. 12. Topamax 50 mg p.o. t.i.d. 13. Torsemide Tuesday, Tuesday, , and Tuesday p.r.n. edema. 14. Coenzyme Q10 200 mg p.o. at bedtime. 15. Anoro Ellipta 62.5/25 mcg 1 puff inhaled daily. FOLLOWUP: The patient may follow up with his primary care provider at [facility]. Patient will follow up with [facility] after discharge home. CONDITION ON DISCHARGE: Guarded. ACTIVITY: Ad marjan. Rolling walker with standby assistance. DIET: ADA. CODE STATUS: Do not resuscitate, do not intubate. DISPOSITION: Home 09/02/2017 with [facility]. Total time preparing and coordinating discharge 35 minutes.
--- NOTE | 2017-09-02 13:59 | PRG ---
DATE OF SERVICE: 09/02/2017 SUBJECTIVE: Mr. Ronni Caldwell has no complaints. He said he did well with ambulation yesterday. OBJECTIVE: VITAL SIGNS: He is afebrile, heart rate 72, respiratory rate is 18, oximetry is 94% on room air, blo od pressure 95/64 this morning. LUNGS: Clear. HEART: Regular rhythm. ABDOMEN: Soft. LABORATORY DATA: There is no new lab. IMPRESSION: Advanced systolic cardiomyopathy secondary to coronary artery disease. He is tentatively scheduled to go home today. His cultures have again been reviewed, it showed no growth on blood cultures from the .
== END 2017-09-02 13:33 | disposition hospice, home (50) | DRG 302 ==
LOC: ERS 17:05 → IMCU/EMU 20:12
PROVIDERS: ADMIT Emergency Medicine; ATTEND Emergency Medicine
DX: I25.5 Ischemic cardiomyopathy (principal); I50.43 Acute on chronic combined systolic (congestive) and diastolic (congestive) heart failure; E87.1 Hypo-osmolality and hyponatremia; I25.10 Atherosclerotic heart disease of native coronary artery without angina pectoris; E78.5 Hyperlipidemia, unspecified; J44.9 Chronic obstructive pulmonary disease, unspecified; I08.1 Rheumatic disorders of both mitral and tricuspid valves; R30.0 Dysuria; E11.649 Type 2 diabetes mellitus with hypoglycemia without coma; Z87.891 Personal history of nicotine dependence; E87.5 Hyperkalemia; I25.2 Old myocardial infarction; I50.84 End stage heart failure; T38.3X5A Adverse effect of insulin and oral hypoglycemic [antidiabetic] drugs, initial encounter; D64.9 Anemia, unspecified; Z95.5 Presence of coronary angioplasty implant and graft
CPT/HCPCS: 36415; 36416; 70450; 71045; 80048; 80053; 80162; 82140; 82274; 82533; 82550; 83880; 84550; 85007; 85025; 85027; 86850; 86900; 86901; 87040; 93005; 93306; 94664; 96361; 96374; 96375; G8978-GP-CL; G8979-GP-CJ; G8987-GO-CM; G8988-GO-CK; J1650; J1815